=== PATIENT | male | born 1945 | race Two or more races ===

== ENCOUNTER 2024-05-23 09:01 | Day surgery (SDC) | payer MEDICARE, BC, SELFPAY ==
[2024-05-17 15:21] VITALS: BMI 31.4
[2024-05-23] MEDS: LACTATED RINGERS 1000ML 1,000 ML 100 ML IV (09:25)
[2024-05-23 09:27] VITALS: BP 131/72; PULSE 74; RESP 18; TEMP 36.2; O2SAT 97
--- NOTE | 2024-05-23 09:41 | P.PNANES_ITS ---
[facility] Disclaimer: The information contained in this section may have been updated after the patient was seen, as this information can be updated by other users. Medical History Kidney stone History of gastroesophageal reflux (GERD) Diabetes mellitus, type 2 Hyperlipidemia Surgical History H/O esophagogastroduodenoscopy History of colonoscopy History of tonsillectomy Family History Father Bladder cancer Mother Embolic stroke Social History Smoking Status: Never smoker alcohol intake: never substance use type: denies use current occupational status: retired Travel in the last 8 weeks: None [facility] Anesthesia Checklist Patient Identification Patient Identification: Arm Band and Verbal (Name & ) Structural Data Admitted From: Home Planned Operative Procedure/s: EGD/Colonoscopy Consent for Planned Operative Procedure(s) Verified: Yes Verified Documents: Surgical Consent and History and Physical NPO Status Verified Time NPO: 00:00 Additional verifications Anesthesia Reactions: No Airway Assessment Mallampati Score:: Class III C-Spine Mobility Assessed: Yes TMJ Mobility Assessed: Yes Dentition: Good Dentition Neurological Assessment Level of Consciousness: Awake Hx Seizures: No Numbness or tingling in extremities: No Anesthesia Plan Anesthesia Risk discussed: Yes Anesthesia Plan: Verified ASA Class: II Anesthesia Type: MAC
[2024-05-23 10:31] VITALS: O2SAT 97
--- NOTE | 2024-05-23 10:42 | P.HP_ITS ---
History of Present Illness *Admission Date: 05/23/24 *Reason for visit:: Iron deficiency anemia *History of present illness: Mr. Arango is a 78-year-old gentleman who is here for diagnostic panendoscopy secondary to iron deficiency anemia [facility] Disclaimer: The information contained in this section may have been updated after the patient was seen, as this information can be updated by other users. Medical History Kidney stone History of gastroesophageal reflux (GERD) Diabetes mellitus, type 2 Hyperlipidemia Surgical History H/O esophagogastroduodenoscopy History of colonoscopy History of tonsillectomy Family History Father Bladder cancer Mother Embolic stroke Social History (Updated 05/23/24 @ 09:42 by Adriana Marley CRNA) Smoking Status: Never smoker alcohol intake: never substance use type: denies use current occupational status: retired Travel in the last 8 weeks: None Review of Systems Review of Systems Review of systems (narrative): Negative *Cardiovascular Comments: Negative *Gastrointestinal Comments: Negative *Genitourinary Comments: Negative *Musculoskeletal Comments: Negative *Neurologic Comments: Negative Meds Home Medications and Allergies Home Medications ?Medication ?Instructions ?Recorded ?Confirmed ?Type aspirin 81 mg capsule 81 mg PO DAILY 05/17/24 05/17/24 History atorvastatin 40 mg tablet 40 mg PO DAILY 05/17/24 05/17/24 History cholecalciferol (vitamin D3) 50 50 mcg PO DAILY 05/17/24 05/17/24 History mcg (2,000 unit) capsule (Vitamin D3) iron 50 mg iron tablet 1 tab PO DAILY 05/17/24 05/17/24 History metformin 500 mg tablet 500 mg PO DAILY 05/17/24 05/17/24 History omega-3 fatty acids 500 mg PO DAILY 05/17/24 05/17/24 History omeprazole 40 mg capsule,delayed 40 mg PO BID 05/17/24 05/17/24 History release New Prescriptions to Start Prescriptions: Allergies Allergy/AdvReac Type Severity Reaction Status Date / Time No Known Allergies Allergy Verified 05/23/24 09:26 Exam Data for Last 24 hours Vital signs and Labs for Last 24 Hours: Temp Pulse Resp BP Pulse Ox O2 Del Method O2 Flow Rate 97.1 F L 74 18 131/72 97 Nasal Cannula 6 05/23/24 09:27 05/23/24 09:27 05/23/24 09:27 05/23/24 09:27 05/23/24 09:27 05/23/24 10:31 05/23/24 10:31 *Routine HEENT Exam Head: Present normocephalic Eye: Present EOMI and PERRL ENT: Present mucous membranes moist *Routine Neck Exam Neck: Present supple *Routine Respiratory Exam Respiratory: Present CTA bilaterally *Routine Cardiovascular Exam Cardiovascular: Present RRR *Routine Abdominal Exam Abdominal: Present soft and normoactive bowel sounds; Absent tenderness *Routine Rectal Exam Rectal:: deferred *Routine Genitalia Exam Genitalia:: deferred *Routine Extremities Exam Extremities: Absent cyanosis, clubbing or edema *Routine Skin Exam Skin: Present warm; Absent rash *Routine Neurological Exam Neurological: Present alert and oriented X3 Assessment and Plan *Assessment and plan (1) Iron deficiency anemia: Status: Acute Category: Medical Code(s): D50.9 - Iron deficiency anemia, unspecified Plan Proceed with panendoscopy
--- NOTE | 2024-05-23 10:50 | HMH.PROCNOTE ---
[facility] Procedure Note Date: 05/23/24 Time: 10:50 Procedure Note:: Upper Endoscopy Procedure Report: Esophagogastroduodenoscopy with cold biopsies and TTS balloon dilation Endoscopost: Dilan Morris II, MD Referring Physician: Melonie Dickerson MD Date of Procedure: May 23, 2024 Equipment: Olympus GIF 190 standard upper endoscope Sedation: MAC sedation Indications: Mr. Arango is a 78-year-old gentleman with the recent finding of iron deficiency anemia in late March 2024. The patient had been on aspirin or NSAIDs. I do not have results of Hemoccult testing. The patient reports no melena, hematochezia or bright red blood per rectum. He reports no abdominal pain or weight loss. His hemoglobin dropped from 14.9 to12.5. His serum iron 27, TIBC 346 and iron saturation of 8%. The patient did have esophageal dilation with upper endoscopy in December 2022. His last colonoscopy was normal in May 2018. He reports no dysphagia presently. Procedure: Prior to the procedure, a history and physical exam was performed, and patient's medications and allergies were reviewed. The risks, benefits and alternatives of the sedation and procedure were discussed with the patient. All questions were answered and informed consent was obtained. The patient was brought to the procedure room. Patient identification and proposed procedure were verified by the physician and the nurse. The patient was placed in a left lateral decubitus position and the scope was passed under direct vision. Throughout the procedure, the patient's blood pressure, pulse, and oxygen saturations were monitored continuously. The upper GI endoscopy was accomplished without difficulty. The patient tolerated the procedure well. Findings: The scope was passed directly into the upper esophagus and advanced to the third and fourth portion of the duodenum. The post bulbar duodenum and duodenal bulb were normal with normal mucosa and conniventes. Biopsies were taken from the first portion of the duodenum and duodenal bulb to rule out celiac disease. The scope was withdrawn through a normal duodenal bulb and pylorus into the stomach. The remainder of the antrum, body and fundus of the stomach were grossly normal. Upon retroflexion there was no hiatal hernia. 2 biopsies were taken in the antrum and along the lesser curvature for histology to rule out gastritis and/or H pylori. The scope was then withdrawn into the esophagus. There was no evidence of reflux esophagitis. There appeared to be an insignificant distal ring and the esophagus was gently dilated to 20 mm with a TTS hydrostatic balloon. The remainder of the esophageal mucosa was normal. Impression: 1. Normal upper endoscopy Plan: There was no etiology for the patient's iron deficiency anemia. I will follow-up the biopsies of the stomach and duodenum to rule out H. pylori or celiac disease which is unlikely. I do suspect that the iron deficiency may have been related to NSAIDs or aspirin. I will proceed with diagnostic colonoscopy. I would also like to obtain the results of his Hemoccult testing. I would continue oral iron replacement.
--- NOTE | 2024-05-23 11:12 | HMH.PROCNOTE ---
[facility] Procedure Note Date: 05/23/24 Time: 11:12 Procedure Note:: Colonoscopy Procedure Report: Colonoscopy with cold snare polypectomy Endoscopist: Dilan Morris II, MD Referring physician: Melonie Dickerson MD Date of Procedure: May 23, 2024 Equipment: Olympus 190 variable stiffness pediatric colonoscope Sedation: MAC sedation Indication: Mr. Arango is a 78-year-old gentleman who is here for diagnostic colonoscopy secondary to iron deficiency anemia. His labs from April 29 showed a drop in hemoglobin from 14.9-12.5. His iron saturation was 8%. He is on oral iron therapy. He was on aspirin or NSAIDs. He reports no rectal bleeding or hematochezia. He has had no abdominal pain or weight loss. His last colonoscopy was in May 2018 and he had some diverticular disease. He reports no family history of colon cancer. Procedure: Prior to the procedure, a history and physical exam was performed, and patient's medications and allergies were reviewed. The risks, benefits and alternatives of the sedation and procedure were discussed with the patient. All questions were answered and informed consent was obtained. The patient was brought to the procedure room. Patient identification and proposed procedure were verified by the physician and the nurse. The patient was placed in a left lateral decubitus position and the scope was passed under direct vision. Throughout the procedure, the patient's blood pressure, pulse, and oxygen saturations were monitored continuously. The colonoscopy was accomplished without difficulty. The patient tolerated the procedure well. Findings: On digital rectal examination there was normal rectal tone. There were no external hemorrhoids. The prostate was 2+, smooth, soft, symmetric without nodules. The colonoscope was introduced through the anal canal to the rectum and advanced to the cecum. The ileocecal valve and appendiceal orifice were identified. The scope was advanced a short distance into the ileum which appeared grossly normal. The scope was then withdrawn into the colon. The cecum, ascending and transverse colon and mucosa were grossly normal. There were scattered diverticuli throughout the descending and sigmoid colon (LEFT colon). There were 2 diminutive polyps in the sigmoid colon (3 and 4 mm) which were both removed via cold snare polypectomy. The rectum itself was normal. Upon retroflexion within the rectum there were grade 1 internal hemorrhoids. The preparation was excellent throughout with [place] Preparation Score of 9. The cecal time was 12 minutes. Impression: 1. Diminutive colonic polyps x 2 2. Left-sided diverticulosis 3. Grade 1 internal hemorrhoids Plan: I will follow-up the polyp histology. Based upon age, I am not convinced that he will require any further preventative/surveillance colonoscopy. There was no upper endoscopic or colonoscopic etiology of his iron deficiency. I would recommend Hemoccult testing. If his Hemoccult testing is negative, I would not pursue additional diagnostic evaluation. However, if his Hemoccult testing was positive, I would then consider video capsule enteroscopy. I would continue oral iron replacement with vitamin C for 3 months and repeat H&H and iron studies.
[2024-05-23 11:16] VITALS: BP 115/74; PULSE 60; RESP 16; O2SAT 98
[2024-05-23 11:26] VITALS: BP 124/84; PULSE 62; RESP 18; O2SAT 97
[2024-05-23 11:36] VITALS: BP 113/73; PULSE 67; RESP 16; O2SAT 98
[2024-05-23 11:46] VITALS: BP 120/70; PULSE 64; RESP 16; O2SAT 97
== END 2024-05-23 12:00 | disposition home or self-care (01) ==
PROVIDERS: PCP Internal Medicine; Visit Provider Internal Medicine Gastroenterology
PROC: 0DJ08ZZ Inspection of Upper Intestinal Tract, Via Natural or Artificial Opening Endoscopic (ICD-10-PCS; CPT 43235; principal; 2024-05-23 10:30)
DX: D50.9 Iron deficiency anemia, unspecified (principal); K64.0 First degree hemorrhoids; K57.30 Diverticulosis of large intestine without perforation or abscess without bleeding
CPT/HCPCS: 45385; 88305; 99221; C1726; J7120

== ENCOUNTER 2025-01-31 10:32 | Outpatient (CLI) | payer MEDICARE, BC, SELFPAY ==
[2025-01-31 11:33] LABS: Basophils # 0.1 K/mm3 (0-0.2); Basophils % 1.1 % (0.1-2.0); Eosinophils # 0.2 Kmm3 (0.0-0.4); Hematocrit 43.4 % (42.0-52.0); Hemoglobin 14.6 g/dL (14.1-18.0); Immature Granulocytes # 0.03 10^3uL; Immature Granulocytes % 0.4 %; Lymphocytes # 1.6 K/mm3 (0.7-4.5); Lymphocytes % 20.1 % (10-50); Mean Corpuscular HGB Conc 33.6 g/dL (31.8-35.4); Mean Corpuscular Volume 100.9 fl (80-94); Monocytes # 0.7 K/mm3 (0.1-1.0); Monocytes % 8.2 % (1.7-9.3); Neutrophils # 5.4 K/mm3 (1.8-7.8); Neutrophils % 68.2 % (37.0-80.0); Nucleated Red Blood Cells # 0 10^3/uL; Nucleated Red Blood Cells % 0 %; Platelet Count 254 K/mm3 (142-424); Red Cell Distribution Width 13.4 % (11.5-17.5); Red Cell Distribution Width-SD 49.1 fL
[2025-01-31 11:56] LABS: Alanine Aminotransferase 38 U/L (12-78); Albumin Level 4.5 g/dl (3.5-5.0); Albumin/Globulin Ratio 2.1 (1.1-1.8); Alkaline Phosphatase 64 U/L (38-126); Anion Gap 9.3 mEq/L (5-15); Aspartate Amino Transferase 28 U/L (17-59); Bilirubin,Total 1.1 mg/dl (0.2-1.3); Blood Urea Nitrogen 21 mg/dl (9-20); Calcium 9.5 mg/dl (8.4-10.2); Carbon Dioxide 30 mmol/L (22.0-30.0); Chloride 106 mmol/L (98-107); Estimated Glomerular Filt Rate 72 ml/min (>60); GFR (African American) 88 ML/MIN (>60); Globulin 2.1 g/dL (1.3-3.2); Glucose 106 mg/dl (74-100); Potassium 4.3 mmoL/L (3.5-5.1); Sodium 141 mmol/L (136-145); Total Protein,Serum 6.6 g/dl (6.3-8.2)
[2025-01-31 12:39] LABS: Iron 158 ug/dL (49-181)
[2025-01-31 12:49] LABS: Total Iron Binding Capacity 353 ug/dL (261-462)
[2025-01-31 13:16] LABS: Ferritin 25.3 ng/ml (17.9-464)
[2025-02-04 03:36] LABS: ALT (SGPT) P5P 34 IU/L (0-55); AST (SGOT) P5P 28 IU/L (0-40); Alpha 2-Macroglobulins, Qn 237 mg/dL (110-276); Apolipoprotein A-1 138 mg/dL (101-178); Bilirubin, Total 0.1 mg/dL (0.0-1.2); Cholesterol, Total 121 mg/dL (100-199); Fibrosis Score 0.16 (0.00-0.21); GGT 20 IU/L (0-65); Glucose 112 mg/dL (70-99); Haptoglobin 173 mg/dL (34-355); NASH Score 0.63 (0.00-0.25); Steatosis Score 0.53 (0.00-0.40); Triglycerides 165 mg/dL (0-149)
== END 2025-01-31 23:59 | disposition home or self-care (01) ==
LOC: LAB 10:36
PROVIDERS: PCP Internal Medicine; Visit Provider Nurse Practitioner Family
DX: K75.81 Nonalcoholic steatohepatitis (NASH) (principal); D50.9 Iron deficiency anemia, unspecified; E78.5 Hyperlipidemia, unspecified
CPT/HCPCS: 80053; 82172; 82247; 82465; 82728; 82947; 82977; 83010; 83540; 83550; 83883; 84450; 84460; 84478; 85025

== ENCOUNTER 2025-04-26 12:51 | Day surgery (SDC) | payer MEDICARE, BC, SELFPAY ==
--- NOTE | 2025-04-25 17:25 | EXP.HP ---
History of Present Illness *Admission Date: 04/26/25 *Reason for visit:: Dysphagia *History of present illness: Mr. Arango is a 79-year-old gentleman who is here for diagnostic/therapeutic upper endoscopy secondary to dysphagia. The patient did have panendoscopy in May 2024. He did have an insignificant lower esophageal ring which was dilated. He did have iron deficiency which responded to oral iron therapy. The patient has had recurrent dysphagia. The examination is deemed medically necessary for diagnostic/therapeutic EGD. The patient has been seen, interviewed and examined prior to the procedure by both myself and the anesthesia provider. [facility] Disclaimer: The information contained in this section may have been updated after the patient was seen, as this information can be updated by other users. Medical History Kidney stone History of gastroesophageal reflux (GERD) Diabetes mellitus, type 2 Hyperlipidemia Surgical History H/O esophagogastroduodenoscopy History of colonoscopy History of tonsillectomy Family History Father Bladder cancer Mother Embolic stroke Social History Smoking Status: Never smoker alcohol intake: never substance use type: denies use current occupational status: retired Travel in the last 8 weeks?: None Have you lived/traveled outside US in past 30 days?: No Contact w/someone who lives/traveled outside US past 30 days?: No Exposure to someone with infectious disease in past 14 days?: No Do you have a fever (greater than 100.4 F or 38 C)?: No Have you tested positive for COVID-19?: No Exposed to someone with COVID-19 in past 14 days?: No Do you have a sore throat?: No Do you have a cough?: No Do you have any weakness?: No Do you have any diarrhea?: No Are you experiencing any unusual bleeding?: No Do you have any muscle aches/pain?: No Do you have any abdominal pain?: No Are you experiencing loss of taste or smell?: No Other Medical History Have you received the Pneumonia Vaccine: No Review of Systems Review of Systems Review of systems (narrative): Negative *Cardiovascular Comments: Negative *Gastrointestinal Comments: Negative *Genitourinary Comments: Negative *Musculoskeletal Comments: Negative *Neurologic Comments: Negative Meds Home Medications and Allergies Home Medications ?Medication ?Instructions ?Recorded ?Confirmed ?Type aspirin 81 mg capsule 81 mg PO DAILY 05/17/24 04/26/25 History cholecalciferol (vitamin D3) 50 50 mcg PO DAILY 05/17/24 04/26/25 History mcg (2,000 unit) capsule (Vitamin D3) metformin 500 mg tablet 500 mg PO DAILY 05/17/24 04/26/25 History atorvastatin 40 mg tablet (Lipitor) 40 mg PO DAILY #30 tabs 01/31/25 04/26/25 Rx biotin 10,000 mcg chewable tablet 10,000 mcg PO DAILY #60 tabs 01/31/25 04/26/25 Rx (Hair, Skin and Nails (biotin)) cranberry extract 650 mg capsule 1,300 mg (2 x 650 mg) PO DAILY #60 01/31/25 04/26/25 Rx caps cyanocobalamin (B12)-cobamamide 2 tab sublingual DAILY #60 tabs 01/31/25 04/26/25 Rx 5,000 mcg-100 mcg sublingual tablet dapagliflozin propanediol 10 mg 10 mg PO DAILY #30 tabs 01/31/25 04/26/25 Rx tablet (Farxiga) omega 0-hur-ebu-fish oil 1,200 mg 1 cap PO DAILY #30 caps 01/31/25 04/26/25 Rx (144 mg-216 mg) capsule (Fish Oil) polyethylene glycol 3350 17 17 g PO DAILY #119 grams 01/31/25 04/26/25 Rx gram/dose oral powder (Miralax) psyllium husk 3.4 gram/5.4 gram 1 tbsp PO DAILY #660 grams 01/31/25 04/26/25 Rx oral powder (Metamucil) New Prescriptions to Start Prescriptions: Allergies Allergy/AdvReac Type Severity Reaction Status Date / Time No Known Allergies Allergy Verified 04/26/25 13:17 Exam *Routine HEENT Exam Head: Present normocephalic Eye: Present EOMI and PERRL ENT: Present mucous membranes moist *Routine Neck Exam Neck: Present supple *Routine Respiratory Exam Respiratory: Present CTA bilaterally *Routine Cardiovascular Exam Cardiovascular: Present RRR *Routine Abdominal Exam Abdominal: Present soft and normoactive bowel sounds; Absent tenderness *Routine Rectal Exam Rectal:: deferred *Routine Genitalia Exam Genitalia:: deferred *Routine Extremities Exam Extremities: Absent cyanosis, clubbing or edema *Routine Skin Exam Skin: Present warm; Absent rash *Routine Neurological Exam Neurological: Present alert and oriented X3 Assessment and Plan *Assessment and plan (1) Dysphagia: Status: Acute Category: Medical Code(s): R13.10 - Dysphagia, unspecified (2) Choking: Status: Acute Category: Medical Code(s): T17.308A - Unspecified foreign body in larynx causing other injury, initial encounter (3) History of esophageal stricture: Status: Acute Category: Medical Code(s): Z87.19 - Personal history of other diseases of the digestive system Plan A/P: 1. Dysphagia/choking is the preprocedural diagnosis. The patient does have a prior history of an esophageal ring/esophageal stricture. The patient will be anesthetized/sedated using MAC sedation. The patient has been seen and examined. Cardiac and lung assessment prior to the examination is stable. Proceed with planned EGD.
[2025-04-26 13:10] VITALS: BMI 31.4
[2025-04-26 13:19] VITALS: BP 133/82; PULSE 60; RESP 18; TEMP 36.2; O2SAT 98
[2025-04-26] MEDS: LACTATED RINGERS 1000ML 1,000 ML 50 ML IV (13:27)
--- NOTE | 2025-04-26 13:45 | P.PNANES_ITS ---
[facility] Disclaimer: The information contained in this section may have been updated after the patient was seen, as this information can be updated by other users. Medical History Kidney stone History of gastroesophageal reflux (GERD) Diabetes mellitus, type 2 Hyperlipidemia Surgical History H/O esophagogastroduodenoscopy History of colonoscopy History of tonsillectomy Family History Father Bladder cancer Mother Embolic stroke Social History Smoking Status: Never smoker alcohol intake: never substance use type: denies use current occupational status: retired Travel in the last 8 weeks?: None Have you lived/traveled outside US in past 30 days?: No Contact w/someone who lives/traveled outside US past 30 days?: No Exposure to someone with infectious disease in past 14 days?: No Do you have a fever (greater than 100.4 F or 38 C)?: No Have you tested positive for COVID-19?: No Exposed to someone with COVID-19 in past 14 days?: No Do you have a sore throat?: No Do you have a cough?: No Do you have any weakness?: No Do you have any diarrhea?: No Are you experiencing any unusual bleeding?: No Do you have any muscle aches/pain?: No Do you have any abdominal pain?: No Are you experiencing loss of taste or smell?: No [facility] Anesthesia Checklist Patient Identification Patient Identification: Arm Band and Family Structural Data Admitted From: Home Planned Operative Procedure/s: EGD Consent for Planned Operative Procedure(s) Verified: Yes Verified Documents: Surgical Consent and History and Physical NPO Status Verified Time NPO: 00:00 Additional verifications Anesthesia Reactions: No Airway Assessment Mallampati Score:: Class II C-Spine Mobility Assessed: Yes TMJ Mobility Assessed: Yes Dentition: Good Dentition Neurological Assessment Level of Consciousness: Awake, Alert and Appropriate Anesthesia Plan Anesthesia Risk discussed: Yes Anesthesia Plan: Verified ASA Class: II Anesthesia Type: MAC
--- NOTE | 2025-04-26 13:54 | P.PCN_ITS ---
[facility] Procedure Note Date: 04/26/25 Time: 14:03 Procedure Note:: Upper Endoscopy Procedure Report: Esophagogastroduodenoscopy with cold biopsies and TTS balloon dilation Endoscopost: Dilan Morris II, MD Referring Physician: Melonie Nash MD, Date of Procedure: April 26, 2025, [address] [place] [address] Equipment: Olympus GIF-1100 standard upper endoscope Sedation: MAC sedation Indications: Mr. Arango is a 79-year-old gentleman who is here for diagnostic/therapeutic upper endoscopy secondary to dysphagia. The patient did have panendoscopy in May 2024. He did have an insignificant lower esophageal ring which was dilated. He did have iron deficiency which responded to oral iron therapy. The patient has had recurrent dysphagia. The patient was eating mac & cheese and choked on this. He has had some additional minor dysphagia. The patient did have an EGD with dilation in May 2024 and did have a distal esophageal ring that was dilated. Procedure: Prior to the procedure, a history and physical exam was performed, and patient's medications and allergies were reviewed. The risks, benefits and alternatives of the sedation and procedure were discussed with the patient. All questions were answered and informed consent was obtained. The patient was brought to the procedure room. Patient identification and proposed procedure were verified by the physician and the nurse. The patient was placed in a left lateral decubitus position and the scope was passed under direct vision. Throughout the procedure, the patient's blood pressure, pulse, and oxygen saturations were monitored continuously. The upper GI endoscopy was accomplished without difficulty. The patient tolerated the procedure well. Findings: The scope was passed directly into the upper esophagus and advanced to the third portion of the duodenum. A cold biopsy was taken from the second portion of the duodenum for the disaccharidase assay. The post bulbar duodenum, ampulla and duodenal bulb were normal with normal mucosa and conniventes. The scope was withdrawn through a normal duodenal bulb and pylorus into the stomach. There was some erosive gastropathy of the antrum. The body and fundus of the stomach were normal. Upon retroflexion there was no hiatal hernia. Cold biopsies were taken from the antrum. The scope was then withdrawn into the esophagus. There was no evidence of reflux esophagitis and no ring or stricture. There were tertiary contractions there were strong and slightly hypercontractile. The entire esophagus was dilated to 60 [place]/20 mm with a TTS hydrostatic balloon. There was mild resistance with hypercontractility in the distal esophagus and at the cricopharyngeus. The remainder of the esophageal mucosa was normal. Impression: 1. 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 Mild erosive gastropathy antrum Plan: I will discuss the findings with the patient and family and follow-up the biopsies.
[2025-04-26 14:05] VITALS: BP 109/67; PULSE 63; RESP 16; TEMP 36.4; O2SAT 96
[2025-04-26 14:15] VITALS: BP 101/64; PULSE 64; RESP 18; TEMP 36.4; O2SAT 96
[2025-04-26 14:25] VITALS: BP 112/63; PULSE 61; RESP 18; TEMP 36.4; O2SAT 97
[2025-04-26 14:35] VITALS: BP 116/75; PULSE 60; RESP 18; TEMP 36.4; O2SAT 97
[2025-04-26 15:02] LABS: POC Glucose,Bedside 106 gm/dL (70-110)
[2025-05-03 14:23] LABS: Interpretation Notes (.); Lactase 2.64 (>/= 14.0); Maltase 158.79 (>/= 110.0); Palatinase 10.21 (>/= 8.5); Reference Notes (.); Sucrase 32.94 (>/= 25.0)
== END 2025-04-26 14:35 | disposition home or self-care (01) ==
PROVIDERS: Visit Provider Internal Medicine Gastroenterology
PROC: 0DJ08ZZ Inspection of Upper Intestinal Tract, Via Natural or Artificial Opening Endoscopic (ICD-10-PCS; CPT 43239; principal; 2025-04-26 14:30)
DX: K22.4 Dyskinesia of esophagus (principal); K31.89 Other diseases of stomach and duodenum; E11.9 Type 2 diabetes mellitus without complications; E78.5 Hyperlipidemia, unspecified; K21.9 Gastro-esophageal reflux disease without esophagitis; Z79.899 Other long term (current) drug therapy; Z79.82 Long term (current) use of aspirin; Z79.84 Long term (current) use of oral hypoglycemic drugs
CPT/HCPCS: 43239; 43249; 82657; 82962; 88305; C1726; J2003; J2704; J7120